=== PATIENT | female | born 1990 | race African-American/Black ===

== ENCOUNTER 2016-11-16 09:44 | Emergency (ER) | payer BC, OTHER ==
[~2016-11-16] VITALS: Ht 162.6 cm; Wt 59.0 kg
[2016-11-16 12:41] VITALS: BP 112/65
== END 2016-11-16 12:42 | disposition home or self-care (01) ==
LOC: ER 10:21
DX: J06.9 Acute upper respiratory infection, unspecified (principal); F17.200 Nicotine dependence, unspecified, uncomplicated
CPT/HCPCS: 87070; 87430; 87804; 99284